=== PATIENT | female | born 1930 | race American Indian/Alaskan Native ===

== ENCOUNTER 2017-02-07 23:24 | Emergency (ER) | payer MEDICARE, MEDICAID ==
[2017-02-08] MEDS ORDERED: Acetaminophen 325 MG Tab PO ONE (00:10)
--- NOTE | 2017-02-08 00:10 | EDM.PDOC ---
ED HPI GENERAL MEDICAL PROBLEM - General Chief Complaint: Fever Stated Complaint: FEVER Time Seen by Provider: 02/08/17 00:00 Source of Information: Reports: Patient, Old Records History Limitations: Reports: No Limitations - History of Present Illness INITIAL COMMENTS - FREE TEXT/NARRATIVE: 86 yo female presents with onset of fever this evening. Has mild dysuria. No cough or SOB, but does have a hx of COPD. Has EGD with biopsy at [facility] about 13 hrs ago. Has no current abdominal pain. No skin rash. Does have a pHx of UTI's. Onset Date: 02/07/17 Onset Time: 20:00 Duration: Hour(s):, Constant Location: Reports: Generalized Quality: Reports: Other (No pain.) Severity: Mild Improves with: Reports: Medication (acetaminophen) Worsens with: Reports: Other (? time) Context: Reports: Other (EGD with biopsies recently) Associated Symptoms: Reports: Fever/Chills. 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, Other (see below) Other Treatments COAL CONVEYOR OPERATOR: none Left upper Quadrant Pain Score (Numeric/FACES): 4 - Related Data Allergies Allergy/AdvReac Type Severity Reaction Status Date / Time Iodinated Contrast- Oral and Allergy Unknown Cannot Verified 02/08/17 00:05 IV Dye Remember [Iodinated Contrast Media - IV Dye] morphine Allergy Unknown Edema Verified 02/08/17 00:05 naproxen Allergy Unknown UNKNOWN Verified 02/08/17 00:05 niacin Allergy Unknown Cannot Verified 02/08/17 00:05 Remember sertraline HCl [From Zoloft] Allergy Unknown Cannot Verified 02/08/17 00:05 Remember influenza virus vaccine, AdvReac Mild Dizziness Verified 02/08/17 00:05 specific [Influenza Virus Vacc,Specific] fentanyl AdvReac Unknown Hallucinati Verified 02/08/17 00:05 ons simvastatin [From Zocor] AdvReac Unknown Fainting Verified 02/08/17 00:05 Home Meds: Home Meds Aspirin 81 mg PO DAILY 03/04/13 [History] Carvedilol [Coreg] 12.5 mg PO BID 03/04/13 [History] Isosorbide Mononitrate [Isosorbide Mononitrate ER] 120 mg PO BID 01/08/14 [ History] Pregabalin [Lyrica] 100 mg PO TID 03/04/13 [History] Albuterol Sulfate [Albuterol Sulfate HFA] 2 puff IH QID PRN 03/27/14 [History] Nitroglycerin [Nitrostat] 0.4 mg SL ASDIRECTED PRN 03/27/14 [History] Ascorbate Calcium [Vitamin C] 500 mg PO DAILY 01/19/16 [History] Ferrous Gluconate 324 mg PO DAILY 01/19/16 [History] Omeprazole 20 mg PO DAILY 01/19/16 [History] Ciprofloxacin [Ciprofloxacin HCl] 500 mg PO BID #14 tab 02/08/17 [Rx] Dextran 70/Hypromellose/PF [Genteal Tears 0.1%-0.3% Drop] 1 each EYEBOTH ASDIRECTED PRN 02/08/17 [History] Furosemide [Furosemide] 40 mg PO DAILY 02/08/17 [History] HYDROcodone Bitartrate [Zohydro ER] 10 mg PO ASDIRECTED PRN 02/08/17 [History] Past Medical History Cardiovascular History: Reports: High Cholesterol, [place], Pacemaker, Stents Respiratory History: Reports: COPD, Intubation, Previous Gastrointestinal History: Reports: Cirrhosis, GERD 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: Musculoskeletal History: Reports: Fracture, Other (See Below) Other Musculoskeletal History: Left wrist Neurological History: Reports: TIA Psychiatric History: Reports: Anxiety, Depression Endocrine/Metabolic History: Reports: Hypothyroidism Hematologic History: Reports: Anemia, Blood Transfusion(s), Transfusion Reaction - Infectious Disease History Infectious Disease History: Reports: Chicken Pox, Shingles - Past Surgical History HEENT Surgical History: Reports: Oral Surgery Cardiovascular Surgical History: Reports: Coronary Artery Bypass, Pacer, Other ( See Below) Other Cardiovascular Surgeries/Procedures: CABG 1987 GI Surgical History: Reports: Appendectomy, Cholecystectomy, Colonoscopy, EGD, Polypectomy Other GI Surgeries/Procedures: EGD with biopsy 02/07/2017 Female Surgical History: Reports: Hysterectomy Social & Family History - Tobacco Use Smoking Status *Q: Never Smoker Years of Tobacco use: 15 Used Tobacco, but Quit: Yes Month Tobacco Last Used: february 20 years ago Second Hand Smoke Exposure: No - Caffeine Use Caffeine Use: Reports: Coffee - Alcohol Use Days Per Week of Alcohol Use: 0 - Recreational Drug Use Recreational Drug Use: No - Living Situation & Occupation Living situation: Reports: Single Occupation: Retired ED ROS GENERAL - Review of Systems Review Of Systems: See Below Constitutional: Reports: Fever. Denies: Diaphoresis HEENT: Reports: No Symptoms Respiratory: Reports: No Symptoms Cardiovascular: Reports: No Symptoms Endocrine: Reports: No Symptoms GI/Abdominal: Reports: No Symptoms : Reports: Dysuria (mild) Musculoskeletal: Reports: No Symptoms Skin: Reports: No Symptoms Neurological: Reports: No Symptoms ED EXAM, SEPSIS - Physical Exam Exam: See Below Exam Limited By: No Limitations General Appearance: Alert, WD/WN, No Apparent Distress Eye Exam: Bilateral Eye: Normal Inspection Ears: Normal External Exam, Normal Canal, Hearing Grossly Normal, Normal TMs Nose: Normal Inspection, Normal Mucosa, No Blood Throat/Mouth: Normal Inspection, Normal Lips, Normal Oropharynx, Normal Voice, No Airway Compromise Head: Atraumatic, Normocephalic Neck: Normal Inspection, Supple, Non-Tender Respiratory/Chest: No Respiratory Distress, Lungs Clear, Normal Breath Sounds, No Accessory Muscle Use Cardiovascular: Regular Rate, Rhythm, No Edema GI/Abdominal Exam: Normal Bowel Sounds, Soft Back: Normal Inspection, CVA Tenderness (L) (mild). No: CVA Tenderness (R) Extremities: Normal Inspection, Normal Range of Motion, Non-Tender, No Pedal Edema Neurological: Alert, Oriented, CN II-XII Intact, Normal Cognition, No Motor/ Sensory Deficits Psychiatric: Normal Affect, Normal Mood Skin: Warm, Dry, Intact, Normal Color, No Rash Lymphatic: Bilateral: No Adenopathy Course - Vital Signs Last Recorded V/S: Last Vital Signs Temp 37.4 C 02/08/17 00:32 Pulse 70 02/07/17 23:40 Resp 18 02/07/17 23:40 BP 117/45 L 02/07/17 23:40 Pulse Ox 94 L 02/07/17 23:40 - Orders/Labs/Meds Orders: Active Orders 24 hr Category Date Time Status Chest 2V [CR] Stat Exams 02/08/17 00:03 Taken CULTURE URINE [RM] Stat Lab 02/08/17 00:32 Ordered Labs: Laboratory Tests 02/08/17 02/08/17 02/08/17 Range/Units 00:03 00:10 00:17 WBC 11.1 H (4.5-11.0) K/uL RBC 3.71 (3.30-5.50) M/uL Hgb 10.6 L (12.0-15.0) g/dL Hct 32.9 L (36.0-48.0) % MCV 89 (80-98) fL MCH 29 (27-31) pg MCHC 32 (32-36) % Plt Count 156 (150-400) K/uL Sodium 138 L (140-148) mmol/L Potassium 4.4 (3.6-5.2) mmol/L Chloride 106 (100-108) mmol/L Carbon Dioxide 24 (21-32) mmol/L Anion Gap 12.4 (5.0-14.0) mmol/L BUN 15 (7-18) mg/dL Creatinine 1.1 H (0.6-1.0) mg/dL Est Cr Clr Drug Dosing 30.93 mL/min Estimated GFR (MDRD) 47 L (>60) Glucose 144 H (74-106) mg/dL Calcium 7.6 L (8.5-10.1) mg/dL C-Reactive Protein (0.0-0.3) mg/dL Urine Color Yellow Urine Appearance Cloudy Urine pH 5.0 (4.5-8.0) Ur Specific [place] 1.015 (1.008-1.030) Urine Protein 30 H (NEGATIVE) mg/dL Urine Glucose (UA) Normal (NEGATIVE) mg/dL Urine Ketones Negative (NEGATIVE) mg/dL Urine Occult Blood Large (NEGATIVE) Urine Nitrite Positive H (NEGATIVE) Urine Bilirubin Small (NEGATIVE) Urine Urobilinogen 1 (NORMAL) mg/dL Ur Leukocyte Esterase Large (NEGATIVE) Urine RBC 10-20 H (0-5) Urine WBC 75-100 H (0-5) Ur Epithelial Cells Few Amorphous Sediment Not seen Urine Bacteria Many Urine Mucus Moderate 02/08/17 Range/Units 00:17 WBC (4.5-11.0) K/uL RBC (3.30-5.50) M/uL Hgb (12.0-15.0) g/dL Hct (36.0-48.0) % MCV (80-98) fL MCH (27-31) pg MCHC (32-36) % Plt Count (150-400) K/uL Sodium (140-148) mmol/L Potassium (3.6-5.2) mmol/L Chloride (100-108) mmol/L Carbon Dioxide (21-32) mmol/L Anion Gap (5.0-14.0) mmol/L BUN (7-18) mg/dL Creatinine (0.6-1.0) mg/dL Est Cr Clr Drug Dosing mL/min Estimated GFR (MDRD) (>60) Glucose (74-106) mg/dL Calcium (8.5-10.1) mg/dL C-Reactive Protein 2.07 H (0.0-0.3) mg/dL Urine Color Urine Appearance Urine pH (4.5-8.0) Ur Specific [place] (1.008-1.030) Urine Protein (NEGATIVE) mg/dL Urine Glucose (UA) (NEGATIVE) mg/dL Urine Ketones (NEGATIVE) mg/dL Urine Occult Blood (NEGATIVE) Urine Nitrite (NEGATIVE) Urine Bilirubin (NEGATIVE) Urine Urobilinogen (NORMAL) mg/dL Ur Leukocyte Esterase (NEGATIVE) Urine RBC (0-5) Urine WBC (0-5) Ur Epithelial Cells Amorphous Sediment Urine Bacteria Urine Mucus Meds: Medications Discontinued Medications Generic Name Dose Route Start Last Admin Trade Name Freq PRN Reason Stop Dose Admin Acetaminophen 650 mg 02/08/17 00:10 02/08/17 00:32 Tylenol PO 02/08/17 00:11 650 mg NOW ONE Administration Ciprofloxacin 500 mg 02/08/17 00:33 Ciprofloxacin Hcl PO 02/08/17 00:34 ONETIME ONE - Radiology Interpretation Free Text/Narrative:: CXR-no acute changes. Departure - Departure Time of Disposition: 00:50 Disposition: Home, Self-Care 01 Condition: Fair Clinical Impression: UTI (urinary tract infection) Qualifiers: Urinary tract infection type: acute cystitis Hematuria presence: with hematuria Qualified Code(s): N30.01 - Acute cystitis with hematuria - Discharge Information Prescriptions: Ciprofloxacin [Ciprofloxacin HCl] 500 mg PO BID #14 tab Referrals: Maame Leblanc NP [Primary Care Provider] - Forms: ED Department Discharge - My Orders Last 24 Hours: My Active Orders 02/08/17 00:03 Chest 2V [CR] Stat 02/08/17 00:32 CULTURE URINE [RM] Stat - Assessment/Plan Last 24 Hours: My Active Orders 02/08/17 00:03 Chest 2V [CR] Stat 02/08/17 00:32 CULTURE URINE [RM] Stat
[2017-02-08] MEDS ORDERED: Ciprofloxacin 500 MG Tab PO ONE (00:33)
[2017-02-08 00:37] VITALS: BP 98/38
--- NOTE | 2017-02-08 08:36 | CR ---
Mild cardiomegaly stable. Mild interstitial thickening is similar compared to remote examinations. Co rrelate for mild interstitial pulmonary edema. This is unchanged. Difficult to exclude a faint nodule left upper lobe at the apex. Consider noncontrast chest CT follow-up.
== END 2017-02-08 01:09 | disposition home or self-care (01) ==
LOC: JP.ED 23:24
DX: N30.01 Acute cystitis with hematuria (principal); J44.9 Chronic obstructive pulmonary disease, unspecified; I10 Essential (primary) hypertension; E78.00 Pure hypercholesterolemia, unspecified; Z87.891 Personal history of nicotine dependence; Z79.82 Long term (current) use of aspirin; Z91.041 Radiographic dye allergy status; Z88.7 Allergy status to serum and vaccine; Z88.8 Allergy status to other drugs, medicaments and biological substances
CPT/HCPCS: 36415; 71020; 80048; 81001; 85027; 86140; 87086; 99284; A9270; 87088; 87186; 99283

== ENCOUNTER 2017-07-25 20:17 | Emergency (ER) | payer MEDICARE, MEDICAID ==
[2017-07-25 23:09] VITALS: BP 160/58
--- NOTE | 2017-07-25 23:31 | EDM.PDOC ---
ED HPI GENERAL MEDICAL PROBLEM - General Chief Complaint: Respiratory Problem Stated Complaint: SHORTNESS OF BREATH Time Seen by Provider: 07/25/17 21:25 Source of Information: Reports: Patient, Family History Limitations: Reports: No Limitations - History of Present Illness INITIAL COMMENTS - FREE TEXT/NARRATIVE: This patient comes in complaining of some shortness of breath. It's mostly when she is lying down. Turns out she stopped taking Lasix a few days ago. She hasn' t had any kind of chest pain. No complaints of leg swelling - Related Data Allergies Allergy/AdvReac Type Severity Reaction Status Date / Time Iodinated Contrast- Oral and Allergy Unknown Cannot Verified 07/25/17 20:47 IV Dye Remember [Iodinated Contrast Media - IV Dye] morphine Allergy Unknown Edema Verified 07/25/17 20:47 naproxen Allergy Unknown UNKNOWN Verified 07/25/17 20:47 niacin Allergy Unknown Cannot Verified 07/25/17 20:47 Remember sertraline HCl [From Zoloft] Allergy Unknown Cannot Verified 07/25/17 20:47 Remember influenza virus vaccine, AdvReac Mild Dizziness Verified 07/25/17 20:47 specific [Influenza Virus Vacc,Specific] fentanyl AdvReac Unknown Hallucinati Verified 07/25/17 20:47 ons simvastatin [From Zocor] AdvReac Unknown Fainting Verified 07/25/17 20:47 Home Meds: Home Meds Aspirin 325 mg PO DAILY 03/04/13 [History] Carvedilol [Coreg] 12.5 mg PO BID 03/04/13 [History] Isosorbide Mononitrate [Isosorbide Mononitrate ER] 120 mg PO BID 03/04/13 [ History] Pregabalin [Lyrica] 100 mg PO TID 03/04/13 [History] Albuterol Sulfate [Albuterol Sulfate HFA] 2 puff IH QID PRN 03/27/14 [History] Nitroglycerin [Nitrostat] 0.4 mg SL ASDIRECTED PRN 03/27/14 [History] Ascorbate Calcium [Vitamin C] 500 mg PO DAILY 01/19/16 [History] Ferrous Gluconate 324 mg PO DAILY 01/19/16 [History] Omeprazole 20 mg PO DAILY 01/19/16 [History] Dextran 70/Hypromellose/PF [Genteal Tears 0.1%-0.3% Drop] 1 each EYEBOTH ASDIRECTED PRN 02/08/17 [History] Furosemide 40 mg PO DAILY 02/08/17 [History] Past Medical History HEENT History: Reports: Glaucoma, Impaired Vision Cardiovascular History: Reports: High Cholesterol, [place], Pacemaker, Stents Respiratory History: Reports: COPD, Intubation, Previous Gastrointestinal History: Reports: Cirrhosis, GERD 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 femur fractue. left hip dislocation Neurological History: Reports: TIA Psychiatric History: Reports: Anxiety, Depression Endocrine/Metabolic History: Reports: Hypothyroidism Hematologic History: Reports: Anemia, Blood Transfusion(s), Transfusion Reaction - Infectious Disease History Infectious Disease History: Reports: Chicken Pox, Shingles - Past Surgical History HEENT Surgical History: Reports: Oral Surgery Cardiovascular Surgical History: Reports: Coronary Artery Bypass, Pacer, Other ( See Below) Other Cardiovascular Surgeries/Procedures: CABG 1987 GI Surgical History: Reports: Appendectomy, Cholecystectomy, Colonoscopy, EGD, Polypectomy Other GI Surgeries/Procedures: EGD with biopsy 02/07/2017 Female Surgical History: Reports: Hysterectomy Social & Family History - Tobacco Use Smoking Status *Q: Former Smoker Used Tobacco, but Quit: Yes Month/Year Tobacco Last Used: 30 years ago - Caffeine Use Caffeine Use: Reports: Coffee - Recreational Drug Use Recreational Drug Use: No - Living Situation & Occupation Living situation: Reports: Single Occupation: Retired ED ROS GENERAL - Review of Systems Review Of Systems: ROS reveals no pertinent complaints other than HPI. ED EXAM, GENERAL - Physical Exam Exam: See Below Exam Limited By: No Limitations General Appearance: Alert, WD/WN, No Apparent Distress (She does not appear to be short of breath) Eye Exam: Bilateral Eye: Normal Inspection Throat/Mouth: Normal Inspection Neck: Normal Inspection Respiratory/Chest: Other (Various pops and crackles sounds like there may be a little bit of rales) Cardiovascular: Regular Rate, Rhythm, No Murmur GI/Abdominal: Non-Tender Back Exam: Normal Inspection Extremities: Normal Inspection Neurological: Alert, Normal Cognition Course - Vital Signs Last Recorded V/S: Last Vital Signs Temp 37.0 C 07/25/17 20:34 Pulse 72 07/25/17 23:09 Resp 18 07/25/17 23:09 BP 160/58 H 07/25/17 23:09 Pulse Ox 92 L 07/25/17 23:09 - Orders/Labs/Meds Labs: Laboratory Tests 07/25/17 07/25/17 07/25/17 Range/Units 21:43 21:43 22:46 WBC 5.2 (4.5-11.0) K/uL RBC 3.64 (3.30-5.50) M/uL Hgb 10.9 L (12.0-15.0) g/dL Hct 33.5 L (36.0-48.0) % MCV 92 (80-98) fL MCH 30 (27-31) pg MCHC 33 (32-36) % Plt Count 163 (150-400) K/uL Neut % (Auto) 46 (36-66) % Lymph % (Auto) 35 (24-44) % [place] % (Auto) 16 H (2-6) % Eos % (Auto) 2 (2-4) % Baso % (Auto) 1 (0-1) % Sodium 142 (140-148) mmol/L Potassium 3.8 (3.6-5.2) mmol/L Chloride 108 (100-108) mmol/L Carbon Dioxide 28 (21-32) mmol/L Anion Gap 6.4 (5.0-14.0) mmol/L BUN 11 (7-18) mg/dL Creatinine 0.9 (0.6-1.0) mg/dL Est Cr Clr Drug Dosing 37.80 mL/min Estimated GFR (MDRD) 60 (>60) Glucose 91 (74-106) mg/dL Calcium 8.1 L (8.5-10.1) mg/dL Total Bilirubin 0.7 (0.2-1.0) mg/dL AST 24 (15-37) U/L ALT 16 (12-78) U/L Alkaline Phosphatase 99 (46-116) U/L Troponin I 0.113 H* 0.106 H* (0.000-0.056) ng/mL NT-Pro-B Natriuret Pep 4033 H (5-450) pg/mL Total Protein 6.7 (6.4-8.2) g/dL Albumin 2.9 L (3.4-5.0) g/dL Globulin 3.8 H (2.3-3.5) g/dL Albumin/Globulin Ratio 0.8 L (1.2-2.2) - Radiology Interpretation Free Text/Narrative:: Chest x-ray appeared to show cardiomegaly and just very minimal pulmonary edema - Re-Assessments/Exams Free Text/Narrative Re-Assessment/Exam: 07/27/17 06:58 When I rechecked the patient she was lying supine on the bed did not appear to be short of breath so she did not require any diuresis here in the ER Departure - Departure Time of Disposition: 23:30 Disposition: Home, Self-Care 01 Condition: Fair Clinical Impression: Shortness of breath - Discharge Information Instructions: Shortness of Breath, Adult Referrals: Maame Leblanc I, HEEL DIPPER [Primary Care Provider] - Forms: ED Department Discharge Additional Instructions: Restart taking the furosemide in the morning. This will get rid of a little bit of fluid and should make breathing easier. Don't take it tonight unless you're having shortness of breath when you go to bed because it'll keep you up all night long going to the bathroom
--- NOTE | 2017-07-26 09:27 | CR ---
Cardiomegaly is mild-moderate. Power pack with AICD leads. Interstitial thickening has increased in t he interval and would suggest interstitial pulmonary edema. No focal consolidation.
== END 2017-07-25 23:45 | disposition home or self-care (01) ==
LOC: JP.ED 20:17
DX: R06.02 Shortness of breath (principal); J44.9 Chronic obstructive pulmonary disease, unspecified; F41.9 Anxiety disorder, unspecified; F32.9 Major depressive disorder, single episode, unspecified; I25.2 Old myocardial infarction; E03.9 Hypothyroidism, unspecified; Z79.82 Long term (current) use of aspirin; Z87.891 Personal history of nicotine dependence; Z79.899 Other long term (current) drug therapy; Z88.8 Allergy status to other drugs, medicaments and biological substances; Z88.5 Allergy status to narcotic agent; Z88.7 Allergy status to serum and vaccine
CPT/HCPCS: 36415; 71046; 71046-26; 80053; 83880; 84484; 85025; 93005; 99283; 99285-25

== ENCOUNTER 2018-05-25 14:16 | Emergency (ER) | payer MEDICARE, MEDICAID ==
[2018-05-25 14:41] VITALS: BP 151/69
[2018-05-25] MEDS ORDERED: Acetaminophen/HYDROcodone 325-5 MG Tab PO ONE (15:57)
--- NOTE | 2018-05-25 16:01 | EDM.PDOC ---
ED HPI GENERAL MEDICAL PROBLEM - General Chief Complaint: General Stated Complaint: FELL ON SATURDAY Time Seen by Provider: 05/25/18 15:05 Source of Information: Reports: Patient History Limitations: Reports: No Limitations - History of Present Illness Onset: Sudden (fell after tripping on rug trying to assist grandchild. ) - Related Data Allergies Allergy/AdvReac Type Severity Reaction Status Date / Time Iodinated Contrast- Oral and Allergy Unknown Cannot Verified 05/25/18 14:29 IV Dye Remember [Iodinated Contrast Media - IV Dye] morphine Allergy Unknown Edema Verified 05/25/18 14:29 naproxen Allergy Unknown UNKNOWN Verified 05/25/18 14:29 niacin Allergy Unknown Cannot Verified 05/25/18 14:29 Remember sertraline HCl [From Zoloft] Allergy Unknown Cannot Verified 05/25/18 14:29 Remember influenza virus vaccine, AdvReac Mild Dizziness Verified 05/25/18 14:29 specific [Influenza Virus Vacc,Specific] fentanyl AdvReac Unknown Hallucinati Verified 05/25/18 14:29 ons simvastatin [From Zocor] AdvReac Unknown Fainting Verified 05/25/18 14:29 Home Meds: Home Meds Aspirin 325 mg PO DAILY 03/04/13 [History] Carvedilol [Coreg] 12.5 mg PO BID 03/04/13 [History] Isosorbide Mononitrate [Isosorbide Mononitrate ER] 120 mg PO BID 03/04/13 [ History] Pregabalin [Lyrica] 100 mg PO TID 03/04/13 [History] Albuterol Sulfate [Albuterol Sulfate HFA] 2 puff IH QID PRN 03/27/14 [History] Nitroglycerin [Nitrostat] 0.4 mg SL ASDIRECTED PRN 03/27/14 [History] Ascorbate Calcium [Vitamin C] 500 mg PO DAILY 01/19/16 [History] Omeprazole 20 mg PO DAILY 01/19/16 [History] Dextran 70/Hypromellose/PF [Genteal Tears 0.1%-0.3% Drop] 1 each EYEBOTH ASDIRECTED PRN 02/08/17 [History] Furosemide 40 mg PO DAILY 02/08/17 [History] Past Medical History HEENT History: Reports: Glaucoma, Impaired Vision Cardiovascular History: Reports: High Cholesterol, [place], Pacemaker, Stents Respiratory History: Reports: COPD, Intubation, Previous Gastrointestinal History: Reports: Cirrhosis, 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 femur fractue. left hip dislocation Neurological History: Reports: TIA Psychiatric History: Reports: Anxiety, Depression Endocrine/Metabolic History: Reports: Hypothyroidism Hematologic History: Reports: Anemia, Blood Transfusion(s), Transfusion Reaction - Infectious Disease History Infectious Disease History: Reports: Chicken Pox, Shingles - Past Surgical History HEENT Surgical History: Reports: Oral Surgery Cardiovascular Surgical History: Reports: Coronary Artery Bypass, Pacer, Other ( See Below) Other Cardiovascular Surgeries/Procedures: CABG 1987 GI Surgical History: Reports: Appendectomy, Cholecystectomy, Colonoscopy, EGD, Polypectomy Other GI Surgeries/Procedures: EGD with biopsy 02/07/2017 Female Surgical History: Reports: Hysterectomy Musculoskeletal Surgical History: Reports: Hip Replacement Social & Family History - Tobacco Use Smoking Status *Q: Never Smoker - Caffeine Use Caffeine Use: Reports: Coffee - Living Situation & Occupation Living situation: Reports: Single Occupation: Retired ED ROS GENERAL - Review of Systems Review Of Systems: See Below Constitutional: Reports: No Symptoms HEENT: Reports: No Symptoms Respiratory: Reports: No Symptoms Cardiovascular: Reports: No Symptoms Endocrine: Reports: No Symptoms GI/Abdominal: Reports: No Symptoms : Reports: No Symptoms Musculoskeletal: Reports: No Symptoms Skin: Reports: No Symptoms Neurological: Reports: No Symptoms Psychiatric: Reports: No Symptoms Hematologic/Lymphatic: Reports: No Symptoms Immunologic: Reports: No Symptoms ED EXAM, GENERAL - Physical Exam Exam: See Below Exam Limited By: No Limitations General Appearance: Alert, WD/WN, No Apparent Distress Ears: Hearing Grossly Normal Nose: Normal Inspection, No Blood Throat/Mouth: Normal Lips Head: Atraumatic, Normocephalic Neck: Normal Inspection, Full Range of Motion Respiratory/Chest: No Respiratory Distress, Lungs Clear, Normal Breath Sounds, No Accessory Muscle Use (discomfort of left ribs with deep inspiration) Cardiovascular: Regular Rate, Rhythm, No Murmur GI/Abdominal: Normal Bowel Sounds, Soft, No Organomegaly, No Mass, Pelvis Stable Back Exam: Full Range of Motion Extremities: No Pedal Edema, Normal Capillary Refill Neurological: Alert, Oriented, Normal Cognition Psychiatric: Normal Affect, Normal Mood Skin Exam: Warm, Dry, Intact, Normal Color, No Rash Course - Vital Signs Text/Narrative:: Ryhythm strip and rib series ordered. Last Recorded V/S: Last Vital Signs Temp 36.3 C 05/25/18 14:38 Pulse 68 05/25/18 14:38 Resp 14 05/25/18 14:38 BP 151/69 H 05/25/18 14:38 Pulse Ox 97 05/25/18 14:38 - Re-Assessments/Exams Free Text/Narrative Re-Assessment/Exam: 05/25/18 16:02 rib series read by preceptor and I. No evidence of fractures or lung puncture. Results shared with patient and daughter. CBC and BMP ordered and obtained. One [place] 5/325 PO given in ED. Departure - Departure Time of Disposition: 16:31 Disposition: Home, Self-Care 01 Condition: Good Clinical Impression: Rib pain on left side - Discharge Information *PRESCRIPTION DRUG MONITORING PROGRAM REVIEWED*: No *COPY OF PRESCRIPTION DRUG MONITORING REPORT IN PATIENT LAWSON: No Instructions: Chest Wall Pain, [id number] Referrals: PCP,None [Primary Care Provider] - Additional Instructions: Patient and daughter instructed to have patient take Tylenol 650 mg every TID and one [place] 5/325mg PO x one tablet at night. Continue with this therapy for 5 to 6 days with the [place] and continue for a few days more with Tylenol until symptoms subside to point to just take tylenol PRN.
--- NOTE | 2018-05-25 16:15 | CRLCR ---
INDICATION: Fall, rib pain TECHNIQUE: Chest radiograph, Rib radiographs 4 views left COMPARISON: None FINDINGS: Mediastinum: There is a left cardiac pacer present with leads in the right atrium and right ventricle. Previous median sternotomy and coronary artery bypass grafting (CABG) noted. Moderate cardiomegaly is present. Lung: Moderate pulmonary vascular congestion and bibasilar atelectasis noted. No sign of pleural effusion seen. No pneumothorax is identified. Ribs and bones: Acute appearing cortical destruction of the left anterior 10th rib is present, suspicious for nondisplaced fracture. Severe diffuse osteopenia is seen. Soft tissue: Unremarkable. IMPRESSIONS: 1. Moderate cardiomegaly is present. 2. Moderate pulmonary vascular congestion and bibasilar atelectasis noted. 3. Acute appearing cortical destruction of the left anterior 10th rib is present, suspicious for nondisplaced fracture. Correlation with physical exam for focal tenderness in this region recommended. Dictated by Eric Mott MD @ 05/25/2018 4:14:41 PM Dictated by: Eric Mott MD @ 05/25/2018 16:14:47 (Electronically Signed)
== END 2018-05-25 16:49 | disposition home or self-care (01) ==
LOC: JP.ED 14:16
DX: R07.81 Pleurodynia (principal); E78.00 Pure hypercholesterolemia, unspecified; J44.9 Chronic obstructive pulmonary disease, unspecified; Z79.82 Long term (current) use of aspirin; Z79.899 Other long term (current) drug therapy; Z86.73 Personal history of transient ischemic attack (TIA), and cerebral infarction without residual deficits; Z91.041 Radiographic dye allergy status; Z88.8 Allergy status to other drugs, medicaments and biological substances
CPT/HCPCS: 36415; 71101; 80048; 85025; 99283; A9270

== ENCOUNTER 2019-07-11 14:13 | Emergency (ER) | payer MEDICARE, MEDICAID ==
--- NOTE | 2019-07-11 14:26 | EDM.PDOC ---
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 Treatments Right Leg Pain Score (Numeric/FACES): 5 - Related Data Allergies Allergy/AdvReac Type Severity Reaction Status Date / Time Iodinated Contrast Media Allergy Unknown Cannot Verified 07/11/19 14:31 [Iodinated Contrast Media - Remember IV Dye] morphine Allergy Unknown Edema Verified 07/11/19 14:31 naproxen Allergy Unknown UNKNOWN Verified 07/11/19 14:31 niacin Allergy Unknown Cannot Verified 07/11/19 14:31 Remember sertraline HCl [From Zoloft] Allergy Unknown Cannot Verified 07/11/19 14:31 Remember influenza virus vaccine, AdvReac Mild Dizziness Verified 07/11/19 14:31 specific [Influenza Virus Vacc,Specific] fentanyl AdvReac Unknown Hallucinati Verified 07/11/19 14:31 ons simvastatin [From Zocor] AdvReac Unknown Fainting Verified 07/11/19 14:31 Home Meds: Home Meds Aspirin 325 mg PO DAILY 03/04/13 [History] Isosorbide Mononitrate [Isosorbide Mononitrate ER] 120 mg PO BID 03/04/13 [ History] Pregabalin [Lyrica] 100 mg PO TID 03/04/13 [History] carvediloL [Coreg] 12.5 mg PO BID 03/04/13 [History] Albuterol Sulfate [Albuterol Sulfate HFA] 2 puff IH QID PRN 03/27/14 [History] Nitroglycerin [Nitrostat] 0.4 mg SL ASDIRECTED PRN 03/27/14 [History] Ascorbate Calcium [Vitamin C] 500 mg PO DAILY 01/19/16 [History] Omeprazole 20 mg PO DAILY 01/19/16 [History] Dextran 70/Hypromellose/PF [Genteal Tears 0.1%-0.3% Drop] 1 each EYEBOTH ASDIRECTED PRN 02/08/17 [History] Furosemide 40 mg PO DAILY 02/08/17 [History] Past Medical History HEENT History: Reports: Glaucoma, Impaired Vision Cardiovascular History: Reports: High Cholesterol, [place], Pacemaker, Stents Respiratory History: Reports: COPD, Intubation, Previous Gastrointestinal History: Reports: Cirrhosis, GERD 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 femur fractue. left hip dislocation Neurological History: Reports: TIA Psychiatric History: Reports: Anxiety, Depression Endocrine/Metabolic History: Reports: Hypothyroidism Hematologic History: Reports: Anemia, Blood Transfusion(s), Transfusion Reaction - Infectious Disease History Infectious Disease History: Reports: Chicken Pox, Shingles - Past Surgical History HEENT Surgical History: Reports: Oral Surgery Cardiovascular Surgical History: Reports: Coronary Artery Bypass, Pacer, Other ( See Below) Other Cardiovascular Surgeries/Procedures: CABG 1987 GI Surgical History: Reports: Appendectomy, Cholecystectomy, Colonoscopy, EGD, Polypectomy Other GI Surgeries/Procedures: EGD with biopsy 02/07/2017 Female Surgical History: Reports: Hysterectomy Musculoskeletal Surgical History: Reports: Hip Replacement Social & Family History - Caffeine Use Caffeine Use: Reports: Coffee - Living Situation & Occupation Living situation: Reports: Single Occupation: Retired ED ROS GENERAL - Review of Systems Review Of Systems: See Below Constitutional: Reports: Other (The patient states she has had marked decrease in activity for the last month, in her words "just lying around the house") Respiratory: Denies: Shortness of Breath Cardiovascular: Denies: Chest Pain GI/Abdominal: Denies: Abdominal Pain Musculoskeletal: Reports: Leg Pain, Joint Pain Skin: Denies: Bruising, Rash Neurological: Denies: Confusion, Dizziness, Headache Hematologic/Lymphatic: Denies: Easy Bruising ED EXAM, GENERAL - Physical Exam Exam: See Below Exam Limited By: No Limitations General Appearance: Alert, Other (Thin and frail-appearing) Eye Exam: Right Eye: Abnormal EOM, Corneal Abrasion (Hernial clouding on the right) Ears: Normal External Exam Nose: Normal Inspection Throat/Mouth: Normal Voice Head: Atraumatic Neck: Normal Inspection Respiratory/Chest: No Respiratory Distress, Normal Breath Sounds Cardiovascular: Normal Peripheral Pulses Peripheral Pulses: 1+: Dorsalis Pedis (L), Dorsalis Pedis (R) GI/Abdominal: Soft, Non-Tender Extremities: Other (Marked pain elicited with internal rotation of her right femur at her pelvis. She has exquisite tenderness on palpation of her right inguinal area but no mass or adenopathy is palpated. She has excellent dorsalis pedis pulse on the right and good sensation in her right foot both medially and laterally. There is normal color to her right lower extremity. Does complain of pain with compression of her right calf.) Neurological: Alert, Oriented, Normal Cognition Psychiatric: Normal Affect, Normal Mood Skin Exam: Warm, Dry Course - Vital Signs Text/Narrative:: X-ray is consistent with arthritis and possibly even with sciatica given the loss of joint space between her lower lumbar vertebrae. However her exquisitely high d-dimer and her decreased mobility makes her a risk for DVT. We will start her on anticoagulation medication and recommend pain medication for arthritis. She needs to have confirmatory ultrasound performed as soon as possible. As of 1744 I am informed by physical science technician that there is no evidence for DVT, although there is marked arterial calcification in the involved leg. Patient has clear evidence of urinary tract infection with multiple bacteria and nitrites in the urine. Her white blood cell count is normal and she has no fever so I am not concerned regarding urosepsis. The only medication patient is taking at home is Lyrica. Will prescribe tramadol for her to take for her arthritis and Septra for her urinary tract infection Last Recorded V/S: Last Vital Signs Temp 36.8 C 07/11/19 14:34 Pulse 66 07/11/19 17:14 Resp 17 07/11/19 14:34 BP 173/72 H 07/11/19 17:14 Pulse Ox 98 07/11/19 16:25 - Orders/Labs/Meds Orders: Active Orders 24 hr Category Date Time Status Femur Min 2V Rt [CR] Stat Exams 07/11/19 14:59 Taken Pelvis 1V or 2V [CR] Stat Exams 07/11/19 14:59 Taken VL Duplex Lwr Ext Veins Ltd Rt [US] Stat Exams 07/11/19 16:27 Ordered Labs: Laboratory Tests 07/11/19 07/11/19 07/11/19 Range/Units 15:08 15:08 15:08 WBC 5.1 (4.5-11.0) K/uL RBC 3.78 (3.30-5.50) M/uL Hgb 10.5 L (12.0-15.0) g/dL Hct 33.8 L (36.0-48.0) % MCV 89 (80-98) fL MCH 28 (27-31) pg MCHC 31 L (32-36) % Plt Count 211 (150-400) K/uL ESR (0-25) mm/hr PT 11.2 (9.5-12.0) sec INR 1.04 (0.80-1.20) D-Dimer, Quantitative (0.0-400.0) ng/mL Sodium 136 L (140-148) mmol/L Potassium 4.1 (3.6-5.2) mmol/L Chloride 102 (100-108) mmol/L Carbon Dioxide 26 (21-32) mmol/L Anion Gap 12.1 (5.0-14.0) mmol/L BUN 14 (7-18) mg/dL Creatinine 0.8 (0.6-1.0) mg/dL Est Cr Clr Drug Dosing 39.02 mL/min Estimated GFR (MDRD) > 60 (>60) Glucose 83 (74-106) mg/dL Calcium 7.8 L (8.5-10.1) mg/dL Total Bilirubin 0.6 (0.2-1.0) mg/dL AST 19 (15-37) U/L ALT 12 (12-78) U/L Alkaline Phosphatase 79 (46-116) U/L Total Protein 6.5 (6.4-8.2) g/dL Albumin 2.6 L (3.4-5.0) g/dL Globulin 3.9 H (2.3-3.5) g/dL Albumin/Globulin Ratio 0.7 L (1.2-2.2) Urine Color (YELLOW) Urine Appearance (CLEAR) Urine pH (5.0-8.0) Ur Specific [place] (1.008-1.030) Urine Protein (NEGATIVE) mg/dL Urine Glucose (UA) (NEGATIVE) mg/dL Urine Ketones (NEGATIVE) mg/dL Urine Occult Blood (NEGATIVE) Urine Nitrite (NEGATIVE) Urine Bilirubin (NEGATIVE) Urine Urobilinogen (0.2-1.0) EU/dL Ur Leukocyte Esterase (NEGATIVE) Urine RBC (0-5) Urine WBC (0-5) Ur Epithelial Cells Urine Bacteria 07/11/19 07/11/19 07/11/19 Range/Units 15:08 15:08 17:13 WBC (4.5-11.0) K/uL RBC (3.30-5.50) M/uL Hgb (12.0-15.0) g/dL Hct (36.0-48.0) % MCV (80-98) fL MCH (27-31) pg MCHC (32-36) % Plt Count (150-400) K/uL ESR 32 H (0-25) mm/hr PT (9.5-12.0) sec INR (0.80-1.20) D-Dimer, Quantitative 2280 H (0.0-400.0) ng/mL Sodium (140-148) mmol/L Potassium (3.6-5.2) mmol/L Chloride (100-108) mmol/L Carbon Dioxide (21-32) mmol/L Anion Gap (5.0-14.0) mmol/L BUN (7-18) mg/dL Creatinine (0.6-1.0) mg/dL Est Cr Clr Drug Dosing mL/min Estimated GFR (MDRD) (>60) Glucose (74-106) mg/dL Calcium (8.5-10.1) mg/dL Total Bilirubin (0.2-1.0) mg/dL AST (15-37) U/L ALT (12-78) U/L Alkaline Phosphatase (46-116) U/L Total Protein (6.4-8.2) g/dL Albumin (3.4-5.0) g/dL Globulin (2.3-3.5) g/dL Albumin/Globulin Ratio (1.2-2.2) Urine Color Yellow (YELLOW) Urine Appearance Slightly cloudy A (CLEAR) Urine pH 6.0 (5.0-8.0) Ur Specific [place] 1.020 (1.008-1.030) Urine Protein Trace H (NEGATIVE) mg/dL Urine Glucose (UA) Negative (NEGATIVE) mg/dL Urine Ketones Negative (NEGATIVE) mg/dL Urine Occult Blood Negative (NEGATIVE) Urine Nitrite Positive H (NEGATIVE) Urine Bilirubin Negative (NEGATIVE) Urine Urobilinogen 2.0 H (0.2-1.0) EU/dL Ur Leukocyte Esterase Negative (NEGATIVE) Urine RBC Not seen (0-5) Urine WBC 0-5 (0-5) Ur Epithelial Cells Occasional Urine Bacteria Many Meds: Medications Discontinued Medications Generic Name Dose Route Start Last Admin Trade Name Venancio PRN Reason Stop Dose Admin Tramadol HCl 50 mg 07/11/19 15:01 07/11/19 15:05 Ultram PO 07/11/19 15:02 50 mg ONETIME ONE Administration - Radiology Interpretation Free Text/Narrative:: Hip x-ray shows narrow joint space but no fracture or dislocation. Pelvic x- ray likewise shows no fracture but there is marked loss of intravertebral joint space in the lower lumbar vertebrae. 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 Septra is provided for urinary tract infection, take it twice a day and drink extra fluid. Definitely follow-up with your primary care physician in 1 week to make sure your urinary tract infection has resolved Sepsis Event Note - Focused Exam Vital Signs: Vital Signs Temp Pulse Resp BP Pulse Ox 07/11/19 17:14 66 173/72 H 07/11/19 16:25 68 161/102 H 98 07/11/19 15:00 65 157/64 H 98 07/11/19 14:34 36.8 C 63 17 156/63 H 95 07/11/19 14:33 36.8 C 63 17 156/63 H 95 Date Exam was Performed: 07/11/19 Time Exam was Performed: 17:51 - My Orders Last 24 Hours: My Active Orders 07/11/19 14:59 Femur Min 2V Rt [CR] Stat Pelvis 1V or 2V [CR] Stat 07/11/19 16:27 VL Duplex Lwr Ext Veins Ltd Rt [US] Stat - Assessment/Plan Last 24 Hours: My Active Orders 07/11/19 14:59 Femur Min 2V Rt [CR] Stat Pelvis 1V or 2V [CR] Stat 07/11/19 16:27 VL Duplex Lwr Ext Veins Ltd Rt [US] Stat
[2019-07-11] MEDS ORDERED: traMADol 50 MG Tab PO ONE ×2 (15:01→18:25)
[2019-07-11 17:14] VITALS: BP 173/72; PULSE 66
--- NOTE | 2019-07-11 18:07 | CRLUS ---
INDICATION: RT LEG PAIN RIGHT LOWER EXTREMITY VENOUS DUPLEX ULTRASOUND TECHNIQUE: Duplex sonography using grayscale imaging as well as color and spectral Doppler interrogation was performed over the right lower extremity with attention to the deep venous system. The exam was technically difficult. FINDINGS: The right common femoral, femoral, deep femoral, popliteal, and posterior tibial veins show normal compressibility, color Doppler flow, and augmentation response. IMPRESSION: No evidence of deep venous thrombosis in the right lower extremity. NIMCO SCOTT MD [employer] [facility] Dictated by: Norbert Scott MD @ 07/11/2019 18:06:46 (Electronically Signed)
[2019-07-11] MEDS ORDERED: Sulfamethoxazole/Trimethoprim 800-160 MG Tab PO ONE (18:24)
--- NOTE | 2019-07-12 11:24 | CRLCR ---
INDICATION: Pain. TECHNIQUE: AP image of the pelvis. COMPARISON: The days right femur x-rays. FINDINGS: No fracture or bone destruction. Normal right hip joint space. Mild left hip osteoarthritis. Left femur hardware. Moderate symphysis pubis osteoarthritis. IMPRESSION: 1. No acute abnormality. 2. 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 3. Left femur hardware. Dictated by Marcial Streeter MD @ Jul 12 2019 11:20AM Signed by Dr. Marcial Streeter @ Jul 12 2019 11:22AM
--- NOTE | 2019-07-12 11:24 | CRLCR ---
INDICATION: Right leg/hip pain. TECHNIQUE: AP lateral views of the right femur, 4 images. COMPARISON: Today`s pelvis x-ray. FINDINGS: No fracture, periosteal reaction or erosive change. Hip joint normal. Mild to moderate osteoarthritis at the patellofemoral joint. Knee otherwise unremarkable. IMPRESSION: 1. Negative right femur. 2. 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 Dictated by Marcial Streeter MD @ Jul 12 2019 11:22AM Signed by Dr. Marcial Streeter @ Jul 12 2019 11:24AM
== END 2019-07-11 18:37 | disposition home or self-care (01) ==
LOC: JP.ED 14:13
DX: M25.551 Pain in right hip (principal); N39.0 Urinary tract infection, site not specified; E78.00 Pure hypercholesterolemia, unspecified; I25.2 Old myocardial infarction; Z95.5 Presence of coronary angioplasty implant and graft; J44.9 Chronic obstructive pulmonary disease, unspecified; Z86.73 Personal history of transient ischemic attack (TIA), and cerebral infarction without residual deficits; F41.9 Anxiety disorder, unspecified; F32.9 Major depressive disorder, single episode, unspecified; K21.9 Gastro-esophageal reflux disease without esophagitis; Z88.8 Allergy status to other drugs, medicaments and biological substances; Z88.5 Allergy status to narcotic agent; Z91.041 Radiographic dye allergy status; Z88.7 Allergy status to serum and vaccine; Z79.899 Other long term (current) drug therapy; Z79.82 Long term (current) use of aspirin
CPT/HCPCS: 36415; 72170; 73552; 80053; 81001; 85027; 85379; 85610; 85651; 93971; 99283; 99284; A9270

== ENCOUNTER 2019-07-24 15:13 | Emergency (ER) | payer MEDICARE, MEDICAID ==
--- NOTE | 2019-07-24 16:06 | EDM.PDOC ---
ED HPI GENERAL MEDICAL PROBLEM - General Chief Complaint: General Stated Complaint: R LEG/HIP PAIN Time Seen by Provider: 07/24/19 16:00 Source of Information: Reports: Patient History Limitations: Reports: No Limitations - History of Present Illness INITIAL COMMENTS - FREE TEXT/NARRATIVE: 88-year-old female brought in by her daughter because of persistent right leg and knee pain, also still has some urinary urgency and they want to make sure the bladder infection is improved. She was started on Bactrim to treat a UTI within the last 2 weeks. She had some appointments to check her arthritis at the [facility], however those were canceled due to the COVID-19 virus situation. She is having trouble ambulating and getting to the bathroom because of knee pain. No fevers or chills, no falls, no shortness of breath or abdominal pain. On her last visit she had x-rays of her knee and pelvis, also a DVT of the right leg and other than arthritis everything was negative. Onset: Gradual Duration: Chronic Location: Reports: Lower Extremity, Right Associated Symptoms: Reports: No Other Symptoms, Loss of Appetite, Malaise. Denies: Chest Pain, Fever/Chills, Nausea/Vomiting, Shortness of Breath - Related Data Allergies Allergy/AdvReac Type Severity Reaction Status Date / Time Iodinated Contrast Media Allergy Unknown Cannot Verified 07/24/19 15:58 [Iodinated Contrast Media - Remember IV Dye] morphine Allergy Unknown Edema Verified 07/24/19 15:58 naproxen Allergy Unknown UNKNOWN Verified 07/24/19 15:58 niacin Allergy Unknown Cannot Verified 07/24/19 15:58 Remember sertraline HCl [From Zoloft] Allergy Unknown Cannot Verified 07/24/19 15:58 Remember influenza virus vaccine, AdvReac Mild Dizziness Verified 07/24/19 15:58 specific [Influenza Virus Vacc,Specific] fentanyl AdvReac Unknown Hallucinati Verified 07/24/19 15:58 ons simvastatin [From Zocor] AdvReac Unknown Fainting Verified 07/24/19 15:58 Home Meds: Home Meds Aspirin 325 mg PO DAILY 03/04/13 [History] Isosorbide Mononitrate [Isosorbide Mononitrate ER] 120 mg PO BID 03/04/13 [ History] Pregabalin [Lyrica] 100 mg PO TID 03/04/13 [History] carvediloL [Coreg] 12.5 mg PO BID 03/04/13 [History] Albuterol Sulfate [Albuterol Sulfate HFA] 2 puff IH QID PRN 03/27/14 [History] Nitroglycerin [Nitrostat] 0.4 mg SL ASDIRECTED PRN 03/27/14 [History] Ascorbate Calcium [Vitamin C] 500 mg PO DAILY 01/19/16 [History] Omeprazole 20 mg PO DAILY 01/19/16 [History] Dextran 70/Hypromellose/PF [Genteal Tears 0.1%-0.3% Drop] 1 each EYEBOTH ASDIRECTED PRN 02/08/17 [History] Furosemide 40 mg PO DAILY 02/08/17 [History] Levothyroxine Sodium [Levo-T] 1 tab PO DAILY 07/24/19 [History] traMADol HCl [Tramadol HCl] 1 tab PO TID 07/24/19 [History] Past Medical History HEENT History: Reports: Glaucoma, Impaired Vision Cardiovascular History: Reports: High Cholesterol, [place], Pacemaker, Stents Respiratory History: Reports: COPD, Intubation, Previous Other Respiratory History: O2 at night Gastrointestinal History: Reports: Cirrhosis, GERD Genitourinary History: Reports: UTI, Recurrent 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 femur fractue. left hip dislocation Neurological History: Reports: TIA Psychiatric History: Reports: Anxiety, Depression Endocrine/Metabolic History: Reports: Hypothyroidism Hematologic History: Reports: Anemia, Blood Transfusion(s), Transfusion Reaction - Infectious Disease History Infectious Disease History: Reports: Chicken Pox, Shingles - Past Surgical History Head Surgeries/Procedures: Reports: None HEENT Surgical History: Reports: Oral Surgery Cardiovascular Surgical History: Reports: Coronary Artery Bypass, Pacer, Other ( See Below) Other Cardiovascular Surgeries/Procedures: CABG 1987 GI Surgical History: Reports: Appendectomy, Cholecystectomy, Colonoscopy, EGD, Polypectomy Other GI Surgeries/Procedures: EGD with biopsy 02/07/2017 Female Surgical History: Reports: Hysterectomy Musculoskeletal Surgical History: Reports: Hip Replacement Dermatological Surgical History: Reports: None Social & Family History - Caffeine Use Caffeine Use: Reports: Coffee - Living Situation & Occupation Living situation: Reports: Single Occupation: Retired ED ROS GENERAL - Review of Systems Review Of Systems: See Below Constitutional: Reports: Malaise. Denies: Fever, Chills HEENT: Reports: No Symptoms Respiratory: Denies: Shortness of Breath Cardiovascular: Denies: Chest Pain GI/Abdominal: Reports: Decreased Appetite. Denies: Abdominal Pain, Nausea, Vomiting : Reports: Frequency, Urgency. Denies: Dysuria Musculoskeletal: Reports: Other (Right hip and knee pain, chronic) Neurological: Denies: Headache ED EXAM, GENERAL - Physical Exam Exam: See Below Exam Limited By: No Limitations General Appearance: Alert, No Apparent Distress Head: Atraumatic Neck: Supple, Non-Tender Respiratory/Chest: Lungs Clear Cardiovascular: Regular Rate, Rhythm GI/Abdominal: Soft, Non-Tender Extremities: Other (Minimal discomfort with passive range of motion of the hip or knee on the right side, she does have some palpation tenderness just lateral to the patella along the lateral tibial plateau. No effusion.) Neurological: Alert, Oriented Psychiatric: Flat Affect Skin Exam: Warm, Dry Course - Vital Signs Last Recorded V/S: Last Vital Signs Temp 98.8 F 07/24/19 16:08 Pulse 78 07/24/19 16:20 Resp 16 07/24/19 16:08 BP 183/88 H 07/24/19 16:20 Pulse Ox 70 L 07/24/19 16:08 - Orders/Labs/Meds Labs: Laboratory Tests 07/24/19 Range/Units 16:20 Urine Color Yellow (YELLOW) Urine Appearance Clear (CLEAR) Urine pH 7.0 (5.0-8.0) Ur Specific [place] 1.025 (1.008-1.030) Urine Protein 30 H (NEGATIVE) mg/dL Urine Glucose (UA) Negative (NEGATIVE) mg/dL Urine Ketones Trace H (NEGATIVE) mg/dL Urine Occult Blood Trace-intact H (NEGATIVE) Urine Nitrite Negative (NEGATIVE) Urine Bilirubin Negative (NEGATIVE) Urine Urobilinogen 2.0 H (0.2-1.0) EU/dL Ur Leukocyte Esterase Small H (NEGATIVE) Urine RBC Not seen (0-5) Urine WBC 0-5 (0-5) Ur Epithelial Cells Not seen Amorphous Sediment Rare Urine Bacteria Not seen Meds: Medications Discontinued Medications Generic Name Dose Route Start Last Admin Trade Name Freq PRN Reason Stop Dose Admin Bupivacaine HCl 10 ml 07/24/19 16:42 07/24/19 16:46 Sensorcaine-Mpf 0.5% INJECT 07/24/19 16:43 10 ml ONETIME ONE Administration Triamcinolone Acetonide 20 mg 07/24/19 16:37 07/24/19 16:46 Kenalog-40 INJECT 20 mg ASDIRECTED PRN Administration Pain (moderate 4-6) - Re-Assessments/Exams Free Text/Narrative Re-Assessment/Exam: 07/24/19 16:58 A mini cath UA was obtained which shows no bacteria, white cells, and is nitrite negative. The right knee was sterilized with Betadine, and using a 27- gauge needle 20 mg of Kenalog with 5 cc of 0.5% Marcaine was injected into the joint space. She ambulated with much less pain. She can increase activity as tolerated, no need for further antibiotics. Departure - Departure Time of Disposition: 17:51 Disposition: Home, Self-Care 01 Clinical Impression: Arthritis of right knee, UTI, Urinary tract infectious disease Right knee pain Qualifiers: Chronicity: chronic Qualified Code(s): M25.561 - Pain in right knee - Discharge Information Instructions: Arthritis, [id number] Referrals: PCP,None [Primary Care Provider] - Forms: ED Department Discharge Care Plan Goals: Continue current medications, no need for further antibiotics. Increase activity as tolerated and recheck next week if your right knee is not improving satisfactorily. Sepsis Event Note - Focused Exam Date Exam was Performed: 07/27/19 Time Exam was Performed: 10:39
[2019-07-24 16:21] VITALS: BP 183/88; PULSE 78
[2019-07-24] MEDS ORDERED: Triamcinolone Acetonide 40 MG/ML 1 ML MDV INJECT PRN (16:37)
[2019-07-24] MEDS ORDERED: Bupivacaine 0.5% 10 ML SDV INJECT ONE (16:42)
== END 2019-07-24 17:52 | disposition home or self-care (01) ==
LOC: JP.ED 15:13
DX: M17.11 Unilateral primary osteoarthritis, right knee (principal); N39.0 Urinary tract infection, site not specified; E78.00 Pure hypercholesterolemia, unspecified; I25.2 Old myocardial infarction; J44.9 Chronic obstructive pulmonary disease, unspecified; K21.9 Gastro-esophageal reflux disease without esophagitis; E03.9 Hypothyroidism, unspecified; Z79.899 Other long term (current) drug therapy; Z86.73 Personal history of transient ischemic attack (TIA), and cerebral infarction without residual deficits; Z95.5 Presence of coronary angioplasty implant and graft; Z91.041 Radiographic dye allergy status; Z88.5 Allergy status to narcotic agent; Z88.6 Allergy status to analgesic agent; Z88.8 Allergy status to other drugs, medicaments and biological substances; Z79.82 Long term (current) use of aspirin
CPT/HCPCS: 20610; 81001; 99283; J3301; J3490